=== PATIENT | female | born 1965 | race Asian ===

== ENCOUNTER 2021-07-12 14:55 | Outpatient (CLI) | payer OTHER ==
--- NOTE | 2021-07-30 10:26 | Mammography Report ---
BILATERAL DIGITAL SCREENING MAMMOGRAM 3D/2D: 07/12/2021 CLINICAL: Routine screening. Comparison is made to exams dated: 01/29/2019 mammogram, 12/18/2017 mammogram, and 12/04/2016 mammogram - [facility], [place]. The tissue of both breasts is extremely dense, which lowers the sensitivity o f mammography. No significant masses, calcifications, or other findings are seen in either breast. There has been no significant interval change. IMPRESSION: NEGATIVE There is no mammographic evidence of malignancy. A 1 year screening mammogram is recommended. This exam was interpreted at Station ID: [id number]. NOTE: For mammograms, a report in lay terms will be sent to the patient. Approximately 15% of breast malignancies will not be visualized mammographically. In the management of a palpable breast mass, a negative mammogram must not discourage biopsy of a clinically suspicious lesion. Electronically Signed By: Ana Maria [email or web address]:07/27/2021 12:19:45 ACR BI-RADS Category 1: Negative 3341F PARENCHYMAL PATTERN: (VD) - The breast(s) demonstrate(s) extremely dense parenchyma, limiting the sen sitivity of mammography. BI-RADS CATEGORY: (1) - 1 RECOMMENDATION: (ANNUAL) - Recommend routine annual screening mammography. [id number] 1 year screening LATERALITY: (B)
== END 2021-07-12 14:56 | disposition home or self-care (01) ==
LOC: DI.N 14:55
DX: Z12.31 Encounter for screening mammogram for malignant neoplasm of breast (principal)